=== PATIENT | female | born 2000 | race African-American/Black ===

== ENCOUNTER 2022-10-09 19:36 | Emergency (ER) | payer OTHER ==
[2022-10-09] MEDS ORDERED: Ibuprofen 200 MG TAB ONE (20:46)
== END 2022-10-09 20:41 | disposition home or self-care (01) ==
LOC: CSHERS 19:36
DX: S93.402A Sprain of unspecified ligament of left ankle, initial encounter (principal); X50.1XXA Overexertion from prolonged static or awkward postures, initial encounter